=== PATIENT | female | born 1965 | race Caucasian/White ===

== ENCOUNTER 2018-08-06 16:33 | Emergency (ER) | payer OTHER ==
--- NOTE | 2018-08-06 19:18 | XRay Report ---
PROCEDURE: XR TOE(S) 2+V RT TECHNIQUE: Right fifth toe 3 views HISTORY: 5th toe injury COMPARISONS: FINDINGS: No fracture identified. No dislocation seen. Joint spaces are within normal limits. No radiopaque for eign body observed IMPRESSION: Negative no acute abnormality seen. This document is electronically signed by Andrzej Hung MD., August 06 2018 07:16:37 PM ET
[2018-08-06] MEDS ORDERED: NORCO 5/325 PO ONE (20:13)
--- NOTE | 2018-08-06 20:45 | Emergency Department Report ---
ED Lower Extremity HPI - General Chief Complaint: Extremity Injury, Lower Stated Complaint: RT TOE INJURY Time Seen by Provider: 08/06/18 20:12 Source: family Mode of arrival: Ambulatory Limitations: Language Barrier - History of Present Illness Initial Comments: pt is a 53 y/o w/f who presents for right foot and pinky toe pain s/p foot verus furniture there is no deformity mild ecchymosis mild swelling pt remains ambulatory there is no open wound MD Complaint: foot injury Onset/Timin -: days(s) Injury: Foot: Right, Toes: Right (pinky toe ) Type of Injury: blunt Place: home Severity scale (0 -10): 5 Improves With: nothing Worsens With: weight bearing, movement, palpation Context: direct blow Other Symptoms: loss of consciousness Associated Symptoms: swelling, ambulatory - Related Data Previous Rx's Medication Instructions Recorded Last Taken Type Naproxen [Naprosyn] 500 mg PO BID PRN #30 tablet 08/06/18 Unknown Rx Allergies Allergy/AdvReac Type Severity Reaction Status Date / Time No Known Allergies Allergy Unverified 08/06/18 16:36 ED Review of Systems ROS: Stated complaint: RT TOE INJURY Other details as noted in HPI Constitutional: denies: chills, fever Eyes: denies: eye pain, eye discharge, vision change ENT: denies: ear pain, throat pain Respiratory: denies: cough, shortness of breath, wheezing Cardiovascular: denies: chest pain, palpitations Endocrine: no symptoms reported Gastrointestinal: denies: abdominal pain, nausea, diarrhea Genitourinary: denies: urgency, dysuria, discharge Musculoskeletal: joint swelling (right pinky toe ). denies: back pain, arthralgia, myalgia Skin: denies: rash, lesions Neurological: denies: headache, weakness, paresthesias Psychiatric: denies: anxiety, depression Hematological/Lymphatic: denies: easy bleeding, easy bruising ED Past Medical Hx - Past Medical History Previous Medical History?: No - Surgical History Past Surgical History?: No - Social History Smoking Status: Former Smoker Substance Use Type: None - Medications Home Medications: Home Medications Medication Instructions Recorded Confirmed Last Taken Type Naproxen [Naprosyn] 500 mg PO BID PRN #30 tablet 08/06/18 Unknown Rx ED Physical Exam - General Limitations: Language Barrier General appearance: alert, in no apparent distress - Head Head exam: Present: atraumatic, normocephalic - Eye Eye exam: Present: normal appearance, PERRL, EOMI Pupils: Present: normal accommodation - ENT ENT exam: Present: mucous membranes moist - Neck Neck exam: Present: normal inspection, full ROM. Absent: tenderness, lymphadenopathy, thyromegaly - Respiratory Respiratory exam: Present: normal lung sounds bilaterally. Absent: respiratory distress, wheezes, stridor, chest wall tenderness - Cardiovascular Cardiovascular Exam: Present: regular rate, normal rhythm, normal heart sounds. Absent: systolic murmur, diastolic murmur, rubs, gallop - GI/Abdominal GI/Abdominal exam: Present: soft, normal bowel sounds. Absent: distended, tenderness, guarding, rebound, rigid, bruit, hernia - Rectal Rectal exam: Present: deferred - Extremities Exam Extremities exam: Present: normal inspection, full ROM, tenderness (right pinky toe pain swelling ), normal capillary refill. Absent: pedal edema, joint swelling, calf tenderness - Expanded Lower Extremity Exam Right Foot/Toe exam: Present: swelling, ecchymosis (ring pinky toe), tenderness at base of 5th metatarsal. Absent: abrasion, laceration, deformity, crepidus, dislocation, erythema, amputation, puncture wound, foreign body, calcaneal tenderness, nail avulsion, subungual hematoma Neuro vascular tendon exam: Absent: pulse deficit, motor deficit, sensory deficit, tendon deficit, foot drop Gait: Positive: observed and normal - Back Exam Back exam: Present: normal inspection, full ROM. Absent: tenderness, CVA tenderness (R), CVA tenderness (L), muscle spasm, paraspinal tenderness, vertebral tenderness, rash noted - Neurological Exam Neurological exam: Present: alert, oriented X3, CN II-XII intact, normal gait, reflexes normal - Psychiatric Psychiatric exam: Present: normal affect, normal mood - Skin Skin exam: Present: warm, dry, intact, normal color. Absent: rash ED Course Vital Signs 08/06/18 17:22 Temperature 98.3 F Pulse Rate 64 Respiratory 20 Rate Blood Pressure 116/74 O2 Sat by Pulse 98 Oximetry ED Lower Extremity MDM - Radiology Data Radiology results: report reviewed, image reviewed Ordering Physician: ED MD MARY Date of Service: 08/06/18 Procedure(s): XR toe(s) 2+V RT Accession Number(s): [id number] cc: ED DOC, Fluoro Time In Minutes: PROCEDURE: XR TOE(S) 2+V RT TECHNIQUE: Right fifth toe 3 views HISTORY: 5th toe injury COMPARISONS: FINDINGS: No fracture identified. No dislocation seen. Joint spaces are within normal limits. No radiopaque foreign body observed IMPRESSION: Negative no acute abnormality seen. This document is electronically signed by Andrzej Rebolledo MD., August 06 2018 07:16:37 PM ET Transcribed By: CHANTE Dictated By: CONTRERAS REBOLLEDO MD Electronically Authenticated By: CONTRERAS REBOLLEDO MD Signed Date/Time: 08/06/181917 DD/ 49 TD/TT: 08/06/181809 - Medical Decision Making pain improved xray negative for fracture plan nsaids prn pain , rice therapy follow up with pcp in 2-3 days return to er if symptoms worsen, pt verbalized agreement and understanding of discharge plan. Critical care attestation.: If time is entered above; I have spent that time in minutes in the direct care of this critically ill patient, excluding procedure time. ED Disposition Clinical Impression: Sprain of foot, left Qualifiers: Encounter type: initial encounter Qualified Code(s): S93.602A - Unspecified sprain of left foot, initial encounter Disposition: - TO HOME OR SELFCARE Is pt being admited?: No Does the pt Need Aspirin: No Condition: Stable Instructions: Foot Sprain (ED) Prescriptions: Naproxen [Naprosyn] 500 mg PO BID PRN #30 tablet PRN Reason: pain Referrals: [facility] [Outside] - 3-5 Days Forms: Work/School Release Form(ED) Time of Disposition: 20:50
[2018-08-06 20:48] VITALS: BP 119/78
== END 2018-08-06 21:16 | disposition home or self-care (01) ==
LOC: ED 16:33
DX: S93.504A Unspecified sprain of right lesser toe(s), initial encounter (principal); Z87.891 Personal history of nicotine dependence; W22.03XA Walked into furniture, initial encounter; Y93.89 Activity, other specified; Y92.89 Other specified places as the place of occurrence of the external cause; Y99.8 Other external cause status
CPT/HCPCS: 99284